=== PATIENT | female | born 1935 | race Caucasian/White ===

== ENCOUNTER 2017-09-15 15:22 | Emergency (ER) | payer OTHER ==
[~2017-09-15] VITALS: Ht 152.4 cm; Wt 54.4 kg
--- NOTE | 2017-09-15 15:30 | NUR ---
PT WAS EVALUATED BY DR PEARSON. PT IS IN ROOM 1B.
[2017-09-15] MEDS ORDERED: IV NORMAL SALINE 1000 ML BAG IV ONE ×2 (15:45→16:45)
[2017-09-15] MEDS ORDERED: HYDROMORPHONE 1 MG/1 ML DISP.SYRIN IV ONE ×4 (15:45→23:45)
[2017-09-15] MEDS ORDERED: ONDANSETRON 4 MG/2 ML VIAL IV ONE ×2 (15:45→16:45)
[2017-09-15] MEDS ORDERED: VITAMIN D3 (16:04)
[2017-09-15] MEDS ORDERED: BENAZEPRIL (16:04)
[2017-09-15] MEDS ORDERED: ASPI81TA31 PO (16:04)
[2017-09-15] MEDS ORDERED: ONDANSETRON 4 MG/2 ML VIAL ONE ×3 (16:05→23:57)
[2017-09-15] MEDS ORDERED: HYDROMORPHONE 2 MG/1 ML DISP.SYRIN ONE ×4 (16:05→23:57)
[2017-09-15 16:08] LABS: BASOPHILS # (AUTO) 0.1 K/uL (0.0-8.0); BASOPHILS % (AUTO) 0.5 % (0.0-2.0); EOSINOPHILS % (AUTO) 0.2 % (0.0-7.0); HEMATOCRIT 38.1 % (31.2-41.9); HEMOGLOBIN 13.1 g/dL (10.9-14.3); LYMPHOCYTES # (AUTO) 1.8 K/uL (20.0-40.0); LYMPHOCYTES % (AUTO) 11.3 % (20.5-51.5); MEAN CORPUSCULAR HEMOGLOBIN 29.8 uug (24.7-32.8); MEAN CORPUSCULAR HGB CONC 34 g/dL (32.3-35.6); MEAN CORPUSCULAR VOLUME 87.1 fL (75.5-95.3); MONOCYTES % (AUTO) 6.5 % (0.0-11.0); NEUTROPHILS # (AUTO) 12.9 K/uL (1.8-8.9); NEUTROPHILS % (AUTO) 81.5 % (38.5-71.5); PLATELET COUNT (AUTO) 338 K/uL (179-408); RED BLOOD CELL COUNT(AUTO) 4.37 MIL/uL (3.63-4.92); WHITE BLOOD COUNT (AUTO) 15.8 K/uL (3.8-11.8)
[2017-09-15 16:27] LABS: ALANINE AMINOTRANSFERASE 25 U/L (14-59); ALKALINE PHOSPHATASE 97 U/L (50-136); ASPARTATE AMINOTRANSFERASE 19 U/L (15-37); BILIRUBIN,DIRECT 0.1 mg/dL (0.0-0.2); BILIRUBIN,TOTAL 0.3 mg/dL (0.2-1.0); CARBON DIOXIDE 25 mmol/L (21-32); CHLORIDE 95 mmol/L (98-107); CREATININE 0.8 mg/dL (0.6-1.3); GLUCOSE 150 mg/dL (74-106); POTASSIUM 3.9 mmol/L (3.5-5.1); TOTAL PROTEIN, SERUM 7.4 g/dL (6.4-8.2); UREA NITROGEN, BLOOD 13 mg/dL (7-18)
[2017-09-15] MEDS ORDERED: IV NS 1000 ML 1,000 ML IV ONE (19:15)
--- NOTE | 2017-09-15 20:55 | NUR ---
Called [facility] to get transfer info. No bed availabilty info at this time
--- NOTE | 2017-09-15 21:30 | NUR ---
Called [facility] to get transfer info. No information available at this time.
--- NOTE | 2017-09-15 22:28 | NUR ---
Miles from [facility] called back with transfer info. Patient will be going to [facility] Room 5310A [phone] Kye ulloa MD. ETA [facility] [id number]
--- NOTE | 2017-09-15 22:56 | NUR ---
Gave SBAR report to Steven RATLIFF from [facility] [phone]
--- NOTE | 2017-09-15 23:30 | NUR ---
Called [facility]. Waiting for [facility] ambulance. No distress noted
[2017-09-15 23:32] LABS: *BILIRUBIN,URIN NEGATIVE (NEGATIVE); *BLOOD, URINE 1+ (NEGATIVE); *COLOR,URINE STRAW (YELLOW); *KETONES,URINE TRACE (NEGATIVE); *PROTEIN,URINE NEGATIVE (NEGATIVE); *UROBILINOGEN,URINE 0.2 E.U./dl (NORMAL); LEUKOCYTE ESTERASE ,URINE TRACE (NEGATIVE); NITRITE, URINE POSITIVE (NEGATIVE); UGLUCOSE NEGATIVE (NEGATIVE)
[2017-09-15 23:39] LABS: *CLARITY,URINE HAZY (CLEAR)
[2017-09-15] MEDS ORDERED: ONDANSETRON IV *ER 4 MG/2 ML VIAL IV ONE (23:45)
--- NOTE | 2017-09-15 23:50 | NUR ---
Gave SBAR report to [facility] ambulance team who will transport patient to [facility]
--- NOTE | 2017-09-16 00:10 | NUR ---
Patient transported out of ER via med response to [facility] with no distress noted
[2017-09-16 00:18] LABS: BACTERIA,URINE MANY /HPF (NONE SEEN); RBC,URINE 20-50 /HPF (0-3); SQUAMOUS EPITHELIAL CELL,UR FEW /HPF (NONE SEEN)
== END 2017-09-16 00:11 | disposition short-term general hospital (02) ==
LOC: ER 15:22
DX: S72.001A Fracture of unspecified part of neck of right femur, initial encounter for closed fracture (principal); I10 Essential (primary) hypertension; K59.00 Constipation, unspecified; K44.9 Diaphragmatic hernia without obstruction or gangrene; I70.0 Atherosclerosis of aorta; J90 Pleural effusion, not elsewhere classified; Z79.82 Long term (current) use of aspirin; X58.XXXA Exposure to other specified factors, initial encounter; Y93.89 Activity, other specified; Y92.89 Other specified places as the place of occurrence of the external cause; Y99.8 Other external cause status
CPT/HCPCS: 36415; 51702; 70030-TC; 70450; 71010; 71250; 72125; 73502; 85025; 85730; 86850; 86900; 86901; 87040; 87086; 93005; A4663; C1758; J1170; J2405; J7030